=== PATIENT | female | born 1960 | race Caucasian/White ===

== ENCOUNTER → 2017-05-27 | Outpatient (CLI) | payer BC ==
--- NOTE | 2017-05-27 11:02 | KCIC ---
DATE: 05/27/2017 EXAM: MAMMO [place] SCREENING BILATERAL Bilateral Screening Digital 2D and 3D Mammogram HISTORY: Screening Mammogram COMPARISON: Multiple prior examinations including 03/08/2016, 03/05/2015 and 01/18/2014 This study was interpreted with the benefit of Computerized Aided Detection (CAD). The breast parenchyma shows scattered fibroglandular densities. Breast parenchyma level B. FINDINGS: Bilateral digital 2-D and 3-D tomosynthesis CC and MLO views. No suspicious mass, calcification or architectural distortion. No significant change from prior examination IMPRESSION: No mammographic evidence of malignancy. Recommend routine screening mammogram in 12 months. BI-RADS CATEGORY: 1 NEGATIVE RECOMMENDED FOLLOW-UP: 12M 12 MONTH FOLLOW-UP PQRS compliance statement: Patient information was entered into a reminder system with a target due date May for the next mammogram. Mammography is a sensitive method for finding small breast cancers, but it does not detect them all and is not a substitute for careful clinical examination. A negative mammogram does not negate a clinically suspicious finding and should not result in delay in biopsying a clinically suspicious abnormality. "Our facility is accredited by the [employer] Mammography Program."
== END | disposition home or self-care (01) ==
LOC: KCIC MAMMO 09:19
PROVIDERS: ATTEND Obstetrics & Gynecology
DX: Z12.31 Encounter for screening mammogram for malignant neoplasm of breast (principal)
CPT/HCPCS: 77063; G0202; 77067

== ENCOUNTER → 2018-02-14 | Outpatient (CLI) | payer BC ==
--- NOTE | 2018-02-14 16:12 | KCIC ---
Examination: MRI of the left knee without contrast HISTORY: History of medial knee pain, swelling for 2 months COMPARISON: None available TECHNIQUE: Multiplanar, multisequence MR imaging of the left knee was performed without contrast. Coronal and sagittal reformats are performed FINDINGS: The anterior cruciate ligament, posterior cruciate ligament appear intact. The medial meniscus, lateral meniscus appear intact. The medial collateral ligament appears intact. Lateral collateral ligamentous complex including the fibular collateral ligament, biceps femoris tendon, popliteus none appear intact. The extensor mechanism is intact. Moderate knee joint effusion. Small popliteal cyst is identified. There is a fluid extending superficial to the semimembranosus tendon medially could be extension of popliteal cyst or fluid in the semimembranosus bursa. The medial, lateral retinaculum appear intact. There is deep fissuring of cartilage identified in the patellar trochlea and medial patellar facet region. There is mild superficial fraying of cartilage identified in the medial, lateral compartment. There is mild soft tissue edema identified about the knee joint. Mild joint space loss identified in the medial, lateral, patellar femoral compartments. IMPRESSION: 1. Small popliteal cyst with fluid in the semimembranosus bursa. 2. Moderate knee joint effusion. 3. Grade II chondromalacia patellofemoral compartment. Grade I chondromalacia medial, lateral compartment of the knee. Electronically signed by: Juancarlos Arredondo MD (02/14/2018 4:08 PM) [facility]-KC[facility]
== END | disposition home or self-care (01) ==
LOC: KCIC MRI 15:17
PROVIDERS: ATTEND Orthopaedic Surgery
DX: M71.22 Synovial cyst of popliteal space [Baker], left knee (principal); M25.462 Effusion, left knee; M94.262 Chondromalacia, left knee
CPT/HCPCS: 73721

== ENCOUNTER 2020-02-23 10:26 | Emergency (ER) | payer BC ==
[~2020-02-23] VITALS: Ht 172.7 cm; Wt 98.0 kg
[2020-02-23] MEDS ORDERED: MECLIZINE HCL 12.5 MG TABLET. PO ONE (11:00)
[2020-02-23 11:30] VITALS: BP 131/83
[2020-02-23] MEDS ORDERED: IV NORMAL SALINE 1000ML BAG 1,000 ML IV ONE (11:30)
[2020-02-23] MEDS ORDERED: LIDO:MAALOX 1:1 20 ML SINGLE DOSE. SWSW ONE (11:30)
--- NOTE | 2020-02-23 11:39 | RAD ---
Chest AP portable at 1056: Reason for examination: Dizziness. History of vertigo. The heart size is normal. Mediastinum is unremarkable. Lung kc are clear except for small calcified granuloma. No acute bony abnormalities are seen. Impression: No acute cardiopulmonary disease. Electronically signed by: Crystal Thornton MD (02/23/2020 11:36 AM) [facility]
[2020-02-23 11:42] LABS: BILIRUBIN,URINE NEGATIVE (NEG); CLARITY,URINE CLEAR; COLOR,URINE YELLOW; NITRITE,URINE NEGATIVE (NEG); PROTEIN,URINE NEGATIVE (NEG-TRACE); UROBILINOGEN,URINE 0.2 mg/dL (0.2 mg/dL)
[2020-02-23 11:57] LABS: RBC,URINE OCC /HPF (0-2)
[2020-02-23 11:58] LABS: BACTERIA,URINE FEW /HPF (0-FEW); SQUAMOUS EPITHELIAL CELL,UR MOD /LPF
--- NOTE | 2020-02-23 12:16 | PHYS DOC ---
Past Medical History Past Medical History: Migraines Additional Past Medical Histor: vertigo Past Surgical History: Smoking Status: Never Smoker Alcohol Use: None General Adult EDM: Chief Complaint: DIZZY/LIGHT HEADED HPI: HPI: Patient is a 59 year old AA female who presents to the emergency department complaints of dizziness. She states that 7:00 this morning she woke up feeling lightheaded. Patient states she also has felt nauseated with the onset of the dizziness and has had some upper abdominal discomfort. She denies any vomiting, diarrhea, chest pain, shortness of breath, fever, cough, wheezing, body aches, fatigue, or back pain. She reports that she previously had problems with vertigo but that dizziness was much more severe than the dizziness experienced today. She denies any headache, numbness, tingling, or weakness. She currently denies any pain. Review of Systems: Review of Systems: Constitutional: Denies fever or chills. [] Eyes: Denies change in visual acuity, double vision, or photophobia. [] HENT: Denies nasal congestion or sore throat. [] Respiratory: Denies cough or shortness of breath. [] Cardiovascular: Denies chest pain or edema. [] GI: Denies vomiting, or diarrhea; see HPI [] : Denies dysuria. [] Musculoskeletal: Denies back pain or joint pain. [] Integument: Denies rash. [] Neurologic: Denies headache, see HPI Lymphatic: Denies swollen glands. [] Psychiatric: Denies depression or anxiety. [] Heart Score: Risk Factors: Risk Factors: DM, Current or recent (<one month) smoker, HTN, HLP, family history of CAD, obesity. Risk Scores: Score 0 - 3: 2.5% MACE over next 6 weeks - Discharge Home Score 4 - 6: 20.3% MACE over next 6 weeks - Admit for Clinical Observation Score 7 - 10: 72.7% MACE over next 6 weeks - Early Invasive Strategies Current Medications: Current Medications Medications (Trade) Dose Ordered Sig/Citlali Start Time Stop Time Status Last Admin Dose Admin Meclizine HCl (Antivert) 25 mg 1X ONCE 02/23/20 11:00 02/23/20 11:01 DC 02/23/20 11:05 25 MG Multi-Ingredient Mouthwash/Gargle (Gi Cocktail) 20 ml 1X ONCE 02/23/20 11:30 02/23/20 11:34 DC 02/23/20 11:48 20 ML Sodium Chloride 1,000 ml @ 1,000 mls/hr 1X ONCE 02/23/20 11:30 02/23/20 12:29 02/23/20 11:50 1,000 MLS/HR Allergies: Allergies: Allergies Coded Allergies Type Severity Reaction Last Updated Verified No Known Drug Allergies 02/23/20 No Physical Exam: PE: Constitutional: Well developed, well nourished, no acute distress, non-toxic appearance. [] HENT: Normocephalic, atraumatic, bilateral external ears normal, oropharynx moist, no oral exudates, nose normal. [] Eyes: PERRLA, EOMI, conjunctiva normal, no discharge, no nystagmus. [] Neck: Normal range of motion, no tenderness, supple, no stridor. [] Cardiovascular:Heart rate regular rhythm, no murmur [] Lungs & Thorax: Bilateral breath sounds clear to auscultation, Respirations even and unlabored, no retractions, no respiratory distress [] Abdomen: Bowel sounds normal, soft, no tenderness, no masses, no pulsatile masses. [] Skin: Warm, dry, no erythema, no rash. [] Back: No tenderness Extremities: No cyanosis, ROM intact, no edema. [] Neurologic: Alert and oriented X 3, no focal deficits noted. [] Psychologic: Affect normal, judgement normal, mood normal. [] Current Patient Data: Labs: Laboratory Tests Test 02/23/20 10:38 Urine Collection Type Unknown Urine Color Yellow Urine Clarity Clear Urine pH 6.0 (<5.0-8.0) Urine Specific [place] <=1.005 (1.000-1.030) Urine Protein Negative mg/dL (NEG-TRACE) Urine Glucose (UA) Negative mg/dL (NEG) Urine Ketones (Stick) Negative mg/dL (NEG) Urine Blood Negative (NEG) Urine Nitrite Negative (NEG) Urine Bilirubin Negative (NEG) Urine Urobilinogen Dipstick 0.2 mg/dL (0.2 mg/dL) Urine Leukocyte Esterase Small (NEG) Urine RBC Occ /HPF (0-2) Urine WBC 5-10 /HPF (0-4) Urine Squamous Epithelial Cells Mod /LPF Urine Bacteria Few /HPF (0-FEW) Urine Mucus Slight /LPF Vital Signs: Vital Signs Date Time Temp Pulse Resp B/P (MAP) Pulse Ox O2 Delivery O2 Flow Rate FiO2 02/23/20 10:45 97.5 80 16 130/72 (91) 99 Room Air 97.5 EKG: EK-sinus rhythm, no STEMI, rate of 74, read by Dr. Sanches [] Radiology/Procedures: Radiology/Procedures: PROCEDURE: CHEST AP ONLY Chest AP portable at 1056: Reason for examination: Dizziness. History of vertigo. The heart size is normal. Mediastinum is unremarkable. Lung kc are clear except for small calcified granuloma. No acute bony abnormalities are seen. Impression: No acute cardiopulmonary disease. [] Course & Med Decision Making: Course & Med Decision Making Pertinent Labs and Imaging studies reviewed. (See chart for details) 59-year-old female presents to the emergency department with sudden onset of dizziness. Work-up included labs, EKG, chest x-ray, and meclizine. EKG was normal sinus rhythm no acute changes. Chest x-ray was unremarkable. CBC revealed mild anemia with a hemoglobin of 10.6, and hematocrit of 33.8; BMP revealed a glucose of 173 otherwise unremarkable, patient's troponin was less than 0.017, BNP was 11, lipase was 239; urinalysis revealed a white blood cell count of 5-10, with few bacteria and moderate squamous cells most likely contaminated patient denies any increased urinary frequency, dysuria, or difficulty with urination. The patient was given 25 mg of meclizine p.o., and a GI cocktail. She reported resolution of the dizziness and the upper abdominal pain after these medications. Nursing staff was unable to initiate an IV line therefore the liter of normal saline was not given. Prescription written for meclizine. The patient was encouraged to change positions slowly, increase fluids, and go home and rest today. Encourage follow-up with primary care provider next week. Return to the ER symptoms worsen. Patient verbalized an understanding of home care, medications, follow-up, and return to ED instructions and was in agreement with the plan of care. [] Dragon Disclaimer: Dragon Disclaimer: This electronic medical record was generated, in whole or in part, using a voice recognition dictation system. Departure Departure Impression: Primary Impression: Vertigo Additional Impression: Epigastric abdominal pain Disposition: HOME, SELF-CARE Condition: STABLE Referrals: IDRIS GARCIA MD (PCP) Patient Instructions: Vertigo, [id number] Additional Instructions: Fill the prescription and use it as directed. Recommend use of sdfa-jsw-dahujop antacids such as Maalox, or Tums if your abdominal pain returns. Increase clear fluids. Change positions slowly for the next few days. I recommend that you follow-up with your primary care doctor next week. Return to the ER if symptoms worsen. Scripts Meclizine Hcl (MECLIZINE HCL) 25 Mg Tablet 1 TAB PO PRN TID PRN for DIZZINESS for 10 Days, #30 TAB Prov: MART HORN APRN 02/23/20 Justicifation of Admission Dx: Justifications for Admission: Justification of Admission Dx: N/A MART HORN APRN Feb 23, 2020 12:16
[2020-02-23 12:19] LABS: CALCIUM 9.2 mg/dL (8.5-10.1); CREATININE 0.9 mg/dL (0.6-1.0); GFR 64.3; POTASSIUM 3.9 mmol/L (3.5-5.1)
[2020-02-23 12:20] LABS: BASO # 0.1 x10^3/uL (0.0-0.2); BASO % 1 % (0-3); EOS # 0.1 x10^3/uL (0.0-0.7); EOS % 1 % (0-3); HEMATOCRIT 33.8 % (36.0-47.0); HEMOGLOBIN 10.6 g/dL (12.0-15.5); LYMPH # 3.3 x10^3/uL (1.0-4.8); LYMPH % 40 % (24-48); MEAN CORPUSCULAR HEMOGLOBIN 25 pg (25-35); MEAN CORPUSCULAR HGB CONC 31 g/dL (31-37); MEAN CORPUSCULAR VOLUME 80 fL (79-100); MONO # 0.4 x10^3/uL (0.0-1.1); MONO % 4 % (0-9); NEUT # 4.6 x10^3/uL (1.8-7.7); NEUT % 54 % (31-73); PLATELET COUNT 334 x10^3/uL (140-400); RED BLOOD COUNT 4.23 x10^6/uL (3.50-5.40); RED CELL DISTRIBUTION WIDTH 16.9 % (11.5-14.5); WHITE BLOOD COUNT 8.4 x10^3/uL (4.0-11.0)
[2020-02-23] MEDS ORDERED: MECL-75 PO (13:00)
--- NOTE | 2020-02-23 14:27 | EKG ---
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
== END 2020-02-23 13:13 | disposition home or self-care (01) ==
LOC: ER 10:26
DX: R10.13 Epigastric pain (principal); R42 Dizziness and giddiness; R11.0 Nausea; G43.909 Migraine, unspecified, not intractable, without status migrainosus; Z98.890 Other specified postprocedural states
CPT/HCPCS: 36415; 71045; 80048; 81001; 83690; 83880; 84484; 85025; 93005; 96360; 99285; J7030; J8597

== ENCOUNTER 2021-07-16 20:49 | Inpatient (IN) | payer BC ==
[~2021-07-16] VITALS: Ht 172.7 cm; Wt 94.6 kg
[~2021-07-16 20:49] MED LIST: MECL-75 PO
--- NOTE | 2021-07-17 02:33 | PHYS DOC ---
Past Medical History Past Medical History: Migraines Additional Past Medical Histor: vertigo, COVID 07/04/2021 Past Surgical History: Smoking Status: Never Smoker Alcohol Use: None General Adult EDM: Chief Complaint: ABDOMINAL PAIN HPI: HPI: 60-year-old female past medical history of migraine headaches, presents to the ED with complaints of constant, nonradiating upper abdominal pain described as" burning, inflamed, and a dull ache," present for the past 2 days with associated back pain. States the pain intensified yesterday. No relief with 3 Tylenol. Reports history of gastric ulcer that was treated with sucralfate. Never had an EGD. Denies any alcohol or drug use. Last bowel movement was this morning, normal brown color. Past surgical history and left wrist surgery. Only medication is Metformin. Reports she tested positive for Covid on July 04, 2022. Review of Systems: Review of Systems: Constitutional: Denies fever or chills. [] Eyes: Denies change in visual acuity. [] HENT: Denies nasal congestion or sore throat. [] Respiratory: Denies cough or shortness of breath. [] Cardiovascular: Denies chest pressure/tightness/heaviness/tearing or ripping pain or edema. [] GI: Denies nausea, vomiting, bloody stools or diarrhea. [] : Denies dysuria or vaginal bleeding Musculoskeletal: Denies flank pain or joint pain. [] Integument: Denies rash or diaphoresis Neurologic: Denies headache, focal weakness or sensory changes. [] Endocrine: Denies polyuria or polydipsia. [] Lymphatic: Denies swollen glands. [] Psychiatric: Denies depression or anxiety. [] Heart Score: C/O Chest Pain: No Risk Factors: Risk Factors: DM, Current or recent (<one month) smoker, HTN, HLP, family history of CAD, obesity. Risk Scores: Score 0 - 3: 2.5% MACE over next 6 weeks - Discharge Home Score 4 - 6: 20.3% MACE over next 6 weeks - Admit for Clinical Observation Score 7 - 10: 72.7% MACE over next 6 weeks - Early Invasive Strategies Allergies: Allergies: Allergies Coded Allergies Type Severity Reaction Last Updated Verified No Known Drug Allergies 02/23/20 No Physical Exam: PE: Constitutional: Well developed, well nourished, no acute distress, non-toxic appearance. HENT: Normocephalic, atraumatic, Eyes: EOMI, conjunctiva normal, no discharge. Neck: Normal range of motion, supple, Cardiovascular: S1/2 present, regular rhythm Lungs & Thorax: Speaking in full sentences, bilateral equal chest rise, no tachypnea or increased work of breathing Abdomen: soft, right upper quadrant and epigastric tenderness with no rigidity or peritoneal signs, no distention Skin: Warm, dry, no erythema, no rash. [] Back: No midline tenderness, no CVA tenderness, reports bilateral paraspinal lumbar pain Extremities: No tenderness, no cyanosis, no lower extremity edema Neurologic: Alert and oriented X 3, normal motor function, normal sensory function, no focal deficits noted. [] Psychologic: Affect normal, judgement normal, mood normal. [] Current Patient Data: Vital Signs: Vital Signs Date Time Temp Pulse Resp B/P (MAP) Pulse Ox O2 Delivery O2 Flow Rate FiO2 07/17/21 01:45 98.2 91 18 118/57 (77) 98 Room Air 98.2 EKG: EKG: Sinus rhythm 82 beats per minute, no axis deviation cutting intervals, T wave inversion lead III, no ST elevations or ST depressions, Q-wave present in lead III, no S in lead I Radiology/Procedures: Radiology/Procedures: IMAGING REPORT Signed PATIENT: MOIRA MCDOWELL ACCOUNT: [id number] : 1960 LOCATION: ER AGE: 60 SEX: F EXAM STATUS: REG ER ORD. PHYSICIAN: TORRES SAMANIEGO DO REASON: upper abd pain PROCEDURE: PORTABLE CHEST 1V EXAM: AP View of the chest DATE: 07/17/2021 2:58 AM INDICATION: Reason: upper abd pain / Spl. Instructions: / History: COMPARISON: 02/23/2020 FINDINGS: The heart is not enlarged. Mediastinal and hilar contours are normal. Left mid lung and lung base patchy airspace opacities likely consolidative process such as pneumonia. No pleural effusion or pneumothorax. IMPRESSION: Left mid lung and lung base patchy airspace opacities likely consolidative process such as pneumonia. Atelectasis could also have this appearance. Electronically signed by: Ari Ramos MD (07/17/2021 3:04 AM) JUNIOR DICTATED and SIGNED BY: ARI RAMOS MD DATE: 07/17/21 [id number] IMAGING REPORT Signed PATIENT: MOIRA MCDOWELL ACCOUNT: [id number] : 1960 LOCATION: ER AGE: 60 SEX: F EXAM STATUS: REG ER ORD. PHYSICIAN: TORRES SAMANIEGO DO REASON: upper abd pain;OMNI 300, 75ML PROCEDURE: CT ABD PELV W/ IV CONTRST ONLY EXAM: CT Abdomen and Pelvis with IV contrast CLINICAL HISTORY: upper abd pain COMPARISON: none TECHNIQUE: Helical CT of the abdomen and pelvis was performed following the administration of intravenous contrast. Axial, coronal and sagittal reformatted images were generated. PQRS compliance statement - One or more of the following individualized dose reduction techniques were utilized for this study: 1. Automated exposure control 2. Adjustment of the mA and/or kV according to patient size 3. Use of iterative reconstruction technique FINDINGS: Lower Chest: Lung bases are clear. Abdomen and Pelvis: Liver is unremarkable. Gallbladder is normal. Spleen is unremarkable. Adrenal glands are normal. Pancreas is unremarkable. Appendix is normal. Symmetric nephrograms. No focal renal lesion. No hydronephrosis. No hydroureter. Multiple uterine fibroids including some of which are calcified. Appendix is normal. Moderate colonic stool content is seen. There is infiltration of the colon at the hepatic flexure. Small bowel feces sign distal small bowel. No abdominal or pelvic ascites. No abdominal or pelvic lymphadenopathy. Bones: No aggressive osseous lesion is seen. Degenerative changes of the spine are seen. IMPRESSION: 1. Thickening of the hepatic flexure of the colon with associated moderate infiltration consistent with colitis, possibly infectious or inflammatory. Ischemic colitis is not excluded but less likely given distribution. Of note, colonic mass can also present in this manner and following resolution of the acute process, colonoscopy is recommended if not recently performed. Electronically signed by: Ari Ramos MD (07/17/2021 4:03 AM) JUNIOR DICTATED and SIGNED BY: ARI RAMOS MD DATE: 07/17/21 [id number] Course & Med Decision Making: Course & Med Decision Making Pertinent Labs and Imaging studies reviewed. (See chart for details) Concern for abdominal pain in the setting of likely infectious colitis on CT imaging, ischemic less likely-lactic acid pending. Chest x-ray concerning for possible pneumonia. D-dimer was accidentally ordered-CT chest pending to evaluate aorta. Will start on azithromycin. On reevaluation patient with persistent abdominal pain stating "nothing has changes." Gallbladder wnl on CT imaging. Recommend repeating troponin and will admit to medicine. I have spoken with the patient and/or caregivers. I have explained the patient's condition, diagnosis and treatment plan based on the information available to me at this time. I have answered the patient's and/or caregivers questions and answered any concerns. The patient and/or caregivers have as good an understanding of the patient's diagnosis, condition and treatment plan as can be expected at this point. The patient has been stabilized within the capability of the emergency department. The patient will be transported for further care and management or will be moved to an observation or inpatient service. I have communicated with the staff or medical practitioner taking over this patient's care. Jackelyn Disclaimer: Jackelyn Disclaimer: This electronic medical record was generated, in whole or in part, using a voice recognition dictation system. Departure Departure Impression: Primary Impression: Abdominal pain Additional Impressions: Colitis Pneumonia Disposition: ADMITTED INPATIENT Admitting Physician: KAY (Dr. Lara) Condition: STABLE Referrals: IDRIS GARCIA MD (PCP) TORRES SAMANIEGO DO Jul 17, 2021 02:33
[2021-07-17] MEDS ORDERED: IV NORMAL SALINE 1000ML BAG 1,000 ML IV SCH (02:45)
[2021-07-17] MEDS ORDERED: IV NORMAL SALINE 1000ML BAG 1,000 ML IV ONE (03:00)
[2021-07-17 03:04] LABS: BASO % 0 % (0-3); EOS # 0.1 x10^3/uL (0.0-0.7); EOS % 1 % (0-3); HEMATOCRIT 31.3 % (36.0-47.0); HEMOGLOBIN 9.9 g/dL (12.0-15.5); LYMPH # 3.7 x10^3/uL (1.0-4.8); LYMPH % 31 % (24-48); MEAN CORPUSCULAR HEMOGLOBIN 24 pg (25-35); MEAN CORPUSCULAR HGB CONC 32 g/dL (31-37); MEAN CORPUSCULAR VOLUME 77 fL (79-100); MONO # 1.1 x10^3/uL (0.0-1.1); MONO % 9 % (0-9); NEUT % 59 % (31-73); PLATELET COUNT 430 x10^3/uL (140-400); RED BLOOD COUNT 4.06 x10^6/uL (3.50-5.40); RED CELL DISTRIBUTION WIDTH 16.1 % (11.5-14.5); WHITE BLOOD COUNT 11.9 x10^3/uL (4.0-11.0)
[2021-07-17 03:05] LABS: BILIRUBIN,URINE SMALL (NEG); CLARITY,URINE CLEAR; COLOR,URINE AMBER; NITRITE,URINE NEGATIVE (NEG); PH,URINE 6.5 (<5.0-8.0); PROTEIN,URINE 30 mg/dL (NEG-TRACE)
--- NOTE | 2021-07-17 03:06 | RAD ---
EXAM: AP View of the chest DATE: 07/17/2021 2:58 AM INDICATION: Reason: upper abd pain / Spl. Instructions: / History: COMPARISON: 02/23/2020 FINDINGS: The heart is not enlarged. Mediastinal and hilar contours are normal. Left mid lung and lung base patchy airspace opacities likely consolidative process such as pneumonia. No pleural effusion or pneumothorax. IMPRESSION: Left mid lung and lung base patchy airspace opacities likely consolidative process such as pneumonia. Atelectasis could also have this appearance. Electronically signed by: Ari Crowley MD (07/17/2021 3:04 AM) JUNIOR
[2021-07-17 03:11] LABS: BARBITURATES NEG (NEG); BENZODIAZEPINES NEG (NEG); CANNABINOIDS NEG (NEG); COCAINE NEG (NEG); METHADONE NEG (NEG); OPIATES NEG (NEG); PHENCYCLIDINE NEG (NEG)
[2021-07-17 03:13] LABS: AMPHETAMINE/METHAMPHETAMINE NEG (NEG)
[2021-07-17 03:15] LABS: CALCIUM 8.6 mg/dL (8.5-10.1); CREATININE 0.8 mg/dL (0.6-1.0); GFR 73.4
[2021-07-17 03:20] LABS: ALBUMIN 3.4 g/dL (3.4-5.0); ALBUMIN/GLOBULIN RATIO 0.8 (1.0-1.7); MAGNESIUM 2.2 mg/dL (1.8-2.4); TOTAL BILIRUBIN 0.6 mg/dL (0.2-1.0); TOTAL PROTEIN 7.5 g/dL (6.4-8.2)
[2021-07-17] MEDS ORDERED: FAMOTIDINE 20 MG/2 ML VIAL IVP ONE (03:30)
[2021-07-17 03:34] LABS: BACTERIA,URINE 0 /HPF (0-FEW); HYALINE CASTS, URINE FEW /HPF; RBC,URINE 0 /HPF (0-2)
[2021-07-17] MEDS ORDERED: CONTRAST GIVEN. MC PRN (03:45)
[2021-07-17] MEDS ORDERED: IOHEXOL 300 MG/ML 100ML VIAL. IV ONE (03:45)
--- NOTE | 2021-07-17 04:06 | RAD ---
EXAM: CT Abdomen and Pelvis with IV contrast CLINICAL HISTORY: upper abd pain COMPARISON: none TECHNIQUE: Helical CT of the abdomen and pelvis was performed following the administration of intrave nous contrast. Axial, coronal and sagittal reformatted images were generated. PQRS compliance statement - One or more of the following individualized dose reduction techniques wer e utilized for this study: 1. Automated exposure control 2. Adjustment of the mA and/or kV according to patient size 3. Use of iterative reconstruction technique FINDINGS: Lower Chest: Lung bases are clear. Abdomen and Pelvis: Liver is unremarkable. Gallbladder is normal. Spleen is unremarkable. Adrenal glands are normal. Panc reas is unremarkable. Appendix is normal. Symmetric nephrograms. No focal renal lesion. No hydronephrosis. No hydroureter. Multiple uterine fib roids including some of which are calcified. Appendix is normal. Moderate colonic stool content is seen. There is infiltration of the colon at the hepatic flexure. Small bowel feces sign distal small bowel. No abdominal or pelvic ascites. No abdominal or pelvic lymphadenopathy. Bones: No aggressive osseous lesion is seen. Degenerative changes of the spine are seen. IMPRESSION: 1. Thickening of the hepatic flexure of the colon with associated moderate infiltration consistent w ith colitis, possibly infectious or inflammatory. Ischemic colitis is not excluded but less likely gi fabienne distribution. Of note, colonic mass can also present in this manner and following resolution of t he acute process, colonoscopy is recommended if not recently performed. Electronically signed by: Ari Crowley MD (07/17/2021 4:03 AM) [facility]
--- NOTE | 2021-07-17 04:34 | EKG ---
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
[2021-07-17] MEDS ORDERED: HYDROmorphone 2 MG/ML INJ. IVP ONE (05:15)
[2021-07-17] MEDS ORDERED: AZITHRMYCN 500MG IVPB FOR OMNI 250 ML IV ONE (05:15)
[2021-07-17] MEDS ORDERED: AZITHROMYCIN 500 MG in IV NORMAL SALINE 250ML 250 ML IV ONE (05:30)
--- NOTE | 2021-07-17 05:44 | RAD ---
EXAM: CT Chest without IV contrast CLINICAL HISTORY: epigastric pain COMPARISON: None. TECHNIQUE: CT of the chest without intravenous contrast. Axial, coronal and sagittal reformatted imag es were generated. ---PQRS compliance statement - One or more of the following individualized dose reduction techniques were utilized for this study: 1. Automated exposure control 2. Adjustment of the mA and/or kV according to patient size 3. Use of iterative reconstruction technique--- FINDINGS: Lack of intravenous contrast limits evaluation of solid organs, vasculature, and lymph nodes. Chest: Heart is not enlarged. Trace pericardial fluid is likely physiologic. Within the constraints o f this noncontrast examination, no mediastinal or hilar lymphadenopathy. No axillary lymphadenopathy. Mild emphysematous changes are seen bilaterally. Linear opacities left lower lobe possibly scarring o r atelectasis. No lobar consolidation. No suspicious lung nodule or mass is seen. Small hiatal hernia . Visualized Upper abdomen: Contrast is seen within the renal collecting systems from prior contrast ad ministration. Please see prior CT abdomen and pelvis report for full abdominal details. Bones: No aggressive osseous lesion is seen. IMPRESSION: 1. Aorta is normal in caliber. 2. Linear opacities lung bases likely scarring or atelectasis. No lobar consolidation. Electronically signed by: Ari Crowley MD (07/17/2021 5:41 AM) [facility]
--- NOTE | 2021-07-17 08:11 | PDOC1 ---
History and Physical Date of Admission Date of Admission DATE: 07/17/21 TIME: 08:11 Identification/Chief Complaint Chief Complaint Abdominal pain Source Source: Patient History of Present Illness History of Present Illness Ms Khan is a 60 yo female with PMHx DM2, PUD who comes to ED 07/16/2021 complaining of progressively worsening epigastric pain that began on 1 5 and has progressively worsened. Associated sour stomach and nausea unable to take p.o. due to the pain. Loss of appetite. Try to eat soup which did not worsen the pain but does not have an appetite. She forced herself to eat. She was diagnosed COVID-19 on 07/04/2021 and recovered at home. She is fully vaccinated with the Moderna vaccine. Her respiratory symptoms had resolved on 07/14/2021 and was feeling good for a couple days prior to her GI symptoms. While she had COVID she did have diarrhea but that has resolved approximately 5 days before coming to the ED. For diabetes she notes her A1c was initially 14 and has been able to get it down to 8 takes 1000 g of Metformin twice daily. Has been on sucralfate for over 5 years as her PCP diagnosed her with ulcers. She has never had an EGD but did have a colonoscopy almost 10 years ago noted polyps. She cannot member the physician where she had this performed. EKG Sinus rhythm 82 beats per minute, no axis deviation cutting intervals, T wave inversion lead III, no ST elevations or ST depressions, Q-wave present in lead III, no S in lead I Chest radiograph with left midlung airspace disease CT chest does not confirm this. CT abdomen pelvis with hepatic flexure wall thickening of the colon. Admitted for further care. Past Medical History Endocrine: Diabetes Past Surgical History Past Surgical History: No pertinent history Family History Family History: Diabetes Current Problem List Problem List Problems Medical Problems: (1) Abdominal pain Status: Acute (2) Colitis Status: Acute (3) Pneumonia Status: Acute Current Medications Current Medications Current Medications Sodium Chloride 1,000 ml @ 1,000 mls/hr Q1H IV ; Start 07/17/21 at 02:45; Stop 07/17/21 at 03:44; Status DC Sodium Chloride 1,000 ml @ 1,000 mls/hr 1X ONCE IV Last administered on 07/17/21at 02:52; Start 07/17/21 at 03:00; Stop 07/17/21 at 03:59; Status DC Famotidine (Pepcid Vial) 20 mg 1X ONCE IVP Last administered on 07/17/21at 03:30; Start 07/17/21 at 03:30; Stop 07/17/21 at 03:31; Status DC Iohexol (Omnipaque 300 Mg/ml) 75 ml 1X ONCE IV Last administered on 07/17/21at 03:43; Start 07/17/21 at 03:45; Stop 07/17/21 at 03:46; Status DC Info (CONTRAST GIVEN -- Rx MONITORING) 1 each PRN DAILY PRN MC SEE COMMENTS; Start 07/17/21 at 03:45; Stop 07/19/21 at 03:44 Azithromycin 250 ml @ 250 mls/hr 1X ONCE IV ; Start 07/17/21 at 05:15; Stop 07/17/21 at 06:14; Status UNV Hydromorphone HCl (Dilaudid) 0.5 mg 1X ONCE IVP Last administered on 07/17/21at 05:15; Start 07/17/21 at 05:15; Stop 07/17/21 at 05:21; Status DC Azithromycin 500 mg/Sodium Chloride 250 ml @ 250 mls/hr 1X ONCE IV ; Start 07/17/21 at 05:30; Stop 07/17/21 at 05:23; Status DC Azithromycin 500 mg/Sodium Chloride 250 ml @ 250 mls/hr 1X ONCE IV Last administered on 07/17/21at 05:30; Start 07/17/21 at 05:30; Stop 07/17/21 at 06:29; Status DC Active Scripts Active Meclizine Hcl 25 Mg Tablet 1 Tab PO PRN TID PRN 10 Days Allergies Allergies: Coded Allergies: No Known Drug Allergies (Unverified , 02/23/20) Physical Exam General: Alert, Oriented X3, Cooperative, moderate distress HEENT: Atraumatic, PERRLA, EOMI, Mucous membr. moist/pink Lungs: Clear to auscultation, Normal air movement Heart: S1S2, RRR, no thrills, no rubs, no gallops, no murmurs Abdomen: Normal bowel sounds, Soft, No hepatosplenomegaly, No masses, Other (Epigastric tenderness) Rectal Exam: not examined Skin: No rashes, No breakdown, No significant lesion Neuro: Normal gait, Normal speech, Strength at 5/5 X4 ext, Normal tone, Sensation intact, Cranial nerves 3-12 NL, Reflexes 2+ Psych/Mental Status: Mental status NL, Mood NL Vitals Vitals Vital Signs Date Time Temp Pulse Resp B/P (MAP) Pulse Ox O2 Delivery O2 Flow Rate FiO2 07/17/21 05:45 81 138/61 (86) 99 Room Air 07/17/21 01:45 98.2 18 98.2 Labs Labs Laboratory Tests Test 07/17/21 02:22 07/17/21 02:46 07/17/21 05:45 Urine Collection Type Unknown Urine Color Zora Urine Clarity Clear Urine pH 6.5 (<5.0-8.0) Urine Specific [place] >=1.030 (1.000-1.030) Urine Protein 30 mg/dL (NEG-TRACE) Urine Glucose (UA) Negative mg/dL (NEG) Urine Ketones (Stick) Trace mg/dL (NEG) Urine Blood Negative (NEG) Urine Nitrite Negative (NEG) Urine Bilirubin Small (NEG) Urine Urobilinogen Dipstick 1.0 mg/dL (0.2 mg/dL) Urine Leukocyte Esterase Small (NEG) Urine RBC 0 /HPF (0-2) Urine WBC 5-10 /HPF (0-4) Urine Squamous Epithelial Cells Few /LPF Urine Bacteria 0 /HPF (0-FEW) Urine Hyaline Casts Few /HPF Urine Mucus Marked /LPF Urine Opiates Screen Neg (NEG) Urine Methadone Screen Neg (NEG) Urine Barbiturates Neg (NEG) Urine Phencyclidine Screen Neg (NEG) Urine Amphetamine/Methamphetamine Neg (NEG) Urine Benzodiazepines Screen Neg (NEG) Urine Cocaine Screen Neg (NEG) Urine Cannabinoids Screen Neg (NEG) Urine Ethyl Alcohol Neg (NEG) White Blood Count 11.9 x10^3/uL (4.0-11.0) Red Blood Count 4.06 x10^6/uL (3.50-5.40) Hemoglobin 9.9 g/dL (12.0-15.5) Hematocrit 31.3 % (36.0-47.0) Mean Corpuscular Volume 77 fL (79-100) Mean Corpuscular Hemoglobin 24 pg (25-35) Mean Corpuscular Hemoglobin Concent 32 g/dL (31-37) Red Cell Distribution Width 16.1 % (11.5-14.5) Platelet Count 430 x10^3/uL (140-400) Neutrophils (%) (Auto) 59 % (31-73) Lymphocytes (%) (Auto) 31 % (24-48) Monocytes (%) (Auto) 9 % (0-9) Eosinophils (%) (Auto) 1 % (0-3) Basophils (%) (Auto) 0 % (0-3) Neutrophils # (Auto) 7.0 x10^3/uL (1.8-7.7) Lymphocytes # (Auto) 3.7 x10^3/uL (1.0-4.8) Monocytes # (Auto) 1.1 x10^3/uL (0.0-1.1) Eosinophils # (Auto) 0.1 x10^3/uL (0.0-0.7) Basophils # (Auto) 0.0 x10^3/uL (0.0-0.2) D-Dimer (Irasema) 2.39 ug/mlFEU (0.00-0.50) Sodium Level 138 mmol/L (136-145) Potassium Level 4.0 mmol/L (3.5-5.1) Chloride Level 103 mmol/L (98-107) Carbon Dioxide Level 26 mmol/L (21-32) Anion Gap 9 (6-14) Blood Urea Nitrogen 9 mg/dL (7-20) Creatinine 0.8 mg/dL (0.6-1.0) Estimated GFR (Cockcroft-Gault) 73.4 BUN/Creatinine Ratio 11 (6-20) Glucose Level 109 mg/dL (70-99) Calcium Level 8.6 mg/dL (8.5-10.1) Magnesium Level 2.2 mg/dL (1.8-2.4) Total Bilirubin 0.6 mg/dL (0.2-1.0) Aspartate Amino Transf (AST/SGOT) 25 U/L (15-37) Alanine Aminotransferase (ALT/SGPT) 44 U/L (14-59) Alkaline Phosphatase 132 U/L (46-116) Troponin I High Sensitivity 5 ng/L (4-50) 5 ng/L (4-50) QN-Fee-Y-Type Natriuretic Peptide 7 pg/mL (0-124) Total Protein 7.5 g/dL (6.4-8.2) Albumin 3.4 g/dL (3.4-5.0) Albumin/Globulin Ratio 0.8 (1.0-1.7) Lipase 68 U/L (73-393) Lactic Acid Level 0.7 mmol/L (0.4-2.0) Laboratory Tests Test 07/17/21 02:22 07/17/21 02:46 07/17/21 05:45 Urine Collection Type Unknown Urine Color Zora Urine Clarity Clear Urine pH 6.5 (<5.0-8.0) Urine Specific [place] >=1.030 (1.000-1.030) Urine Protein 30 mg/dL (NEG-TRACE) Urine Glucose (UA) Negative mg/dL (NEG) Urine Ketones (Stick) Trace mg/dL (NEG) Urine Blood Negative (NEG) Urine Nitrite Negative (NEG) Urine Bilirubin Small (NEG) Urine Urobilinogen Dipstick 1.0 mg/dL (0.2 mg/dL) Urine Leukocyte Esterase Small (NEG) Urine RBC 0 /HPF (0-2) Urine WBC 5-10 /HPF (0-4) Urine Squamous Epithelial Cells Few /LPF Urine Bacteria 0 /HPF (0-FEW) Urine Hyaline Casts Few /HPF Urine Mucus Marked /LPF Urine Opiates Screen Neg (NEG) Urine Methadone Screen Neg (NEG) Urine Barbiturates Neg (NEG) Urine Phencyclidine Screen Neg (NEG) Urine Amphetamine/Methamphetamine Neg (NEG) Urine Benzodiazepines Screen Neg (NEG) Urine Cocaine Screen Neg (NEG) Urine Cannabinoids Screen Neg (NEG) Urine Ethyl Alcohol Neg (NEG) White Blood Count 11.9 x10^3/uL (4.0-11.0) Red Blood Count 4.06 x10^6/uL (3.50-5.40) Hemoglobin 9.9 g/dL (12.0-15.5) Hematocrit 31.3 % (36.0-47.0) Mean Corpuscular Volume 77 fL (79-100) Mean Corpuscular Hemoglobin 24 pg (25-35) Mean Corpuscular Hemoglobin Concent 32 g/dL (31-37) Red Cell Distribution Width 16.1 % (11.5-14.5) Platelet Count 430 x10^3/uL (140-400) Neutrophils (%) (Auto) 59 % (31-73) Lymphocytes (%) (Auto) 31 % (24-48) Monocytes (%) (Auto) 9 % (0-9) Eosinophils (%) (Auto) 1 % (0-3) Basophils (%) (Auto) 0 % (0-3) Neutrophils # (Auto) 7.0 x10^3/uL (1.8-7.7) Lymphocytes # (Auto) 3.7 x10^3/uL (1.0-4.8) Monocytes # (Auto) 1.1 x10^3/uL (0.0-1.1) Eosinophils # (Auto) 0.1 x10^3/uL (0.0-0.7) Basophils # (Auto) 0.0 x10^3/uL (0.0-0.2) D-Dimer (Irasema) 2.39 ug/mlFEU (0.00-0.50) Sodium Level 138 mmol/L (136-145) Potassium Level 4.0 mmol/L (3.5-5.1) Chloride Level 103 mmol/L (98-107) Carbon Dioxide Level 26 mmol/L (21-32) Anion Gap 9 (6-14) Blood Urea Nitrogen 9 mg/dL (7-20) Creatinine 0.8 mg/dL (0.6-1.0) Estimated GFR (Cockcroft-Gault) 73.4 BUN/Creatinine Ratio 11 (6-20) Glucose Level 109 mg/dL (70-99) Calcium Level 8.6 mg/dL (8.5-10.1) Magnesium Level 2.2 mg/dL (1.8-2.4) Total Bilirubin 0.6 mg/dL (0.2-1.0) Aspartate Amino Transf (AST/SGOT) 25 U/L (15-37) Alanine Aminotransferase (ALT/SGPT) 44 U/L (14-59) Alkaline Phosphatase 132 U/L (46-116) Troponin I High Sensitivity 5 ng/L (4-50) 5 ng/L (4-50) HN-Jqe-A-Type Natriuretic Peptide 7 pg/mL (0-124) Total Protein 7.5 g/dL (6.4-8.2) Albumin 3.4 g/dL (3.4-5.0) Albumin/Globulin Ratio 0.8 (1.0-1.7) Lipase 68 U/L (73-393) Lactic Acid Level 0.7 mmol/L (0.4-2.0) Images Images Radiology/Procedures: IMAGING REPORT Signed PATIENT: MOIRA KHAN ACCOUNT: [id number] : 1960 LOCATION: ER AGE: 60 SEX: F EXAM STATUS: REG ER ORD. PHYSICIAN: TORRES SAMANIEGO DO REASON: upper abd pain PROCEDURE: PORTABLE CHEST 1V EXAM: AP View of the chest DATE: 07/17/2021 2:58 AM INDICATION: Reason: upper abd pain / Spl. Instructions: / History: COMPARISON: 02/23/2020 FINDINGS: The heart is not enlarged. Mediastinal and hilar contours are normal. Left mid lung and lung base patchy airspace opacities likely consolidative process such as pneumonia. No pleural effusion or pneumothorax. IMPRESSION: Left mid lung and lung base patchy airspace opacities likely consolidative process such as pneumonia. Atelectasis could also have this appearance. Electronically signed by: Ari Ramos MD (07/17/2021 3:04 AM) [facility] DICTATED and SIGNED BY: ARI RAMOS MD DATE: 07/17/21 [id number] IMAGING REPORT Signed PATIENT: MOIRA KHAN ACCOUNT: [id number] : 1960 LOCATION: ER AGE: 60 SEX: F EXAM STATUS: REG ER ORD. PHYSICIAN: TORRES SAMANIEGO DO REASON: upper abd pain;OMNI 300, 75ML PROCEDURE: CT ABD PELV W/ IV CONTRST ONLY EXAM: CT Abdomen and Pelvis with IV contrast CLINICAL HISTORY: upper abd pain COMPARISON: none TECHNIQUE: Helical CT of the abdomen and pelvis was performed following the administration of intravenous contrast. Axial, coronal and sagittal reformatted images were generated. PQRS compliance statement - One or more of the following individualized dose reduction techniques were utilized for this study: 1. Automated exposure control 2. Adjustment of the mA and/or kV according to patient size 3. Use of iterative reconstruction technique FINDINGS: Lower Chest: Lung bases are clear. Abdomen and Pelvis: Liver is unremarkable. Gallbladder is normal. Spleen is unremarkable. Adrenal glands are normal. Pancreas is unremarkable. Appendix is normal. Symmetric nephrograms. No focal renal lesion. No hydronephrosis. No hydroureter. Multiple uterine fibroids including some of which are calcified. Appendix is normal. Moderate colonic stool content is seen. There is infiltration of the colon at the hepatic flexure. Small bowel feces sign distal small bowel. No abdominal or pelvic ascites. No abdominal or pelvic lymphadenopathy. Bones: No aggressive osseous lesion is seen. Degenerative changes of the spine are seen. IMPRESSION: 1. Thickening of the hepatic flexure of the colon with associated moderate infiltration consistent with colitis, possibly infectious or inflammatory. Ischemic colitis is not excluded but less likely given distribution. Of note, colonic mass can also present in this manner and following resolution of the acute process, colonoscopy is recommended if not recently performed. VTE Prophylaxis Ordered VTE Prophylaxis Devices: No VTE Pharmacological Prophylaxi: Yes Assessment/Plan Assessment/Plan A/P: Epigastric abdominal pain -possibly PUD. IV fentanyl for pain, IV PPI. Consult GI for consideration of EGD inpatient versus outpatient. If able to manage pain may be radicular outpatient. Abnormal CT -not clear if it is actually colitis. Urinary symptoms are consistent with's. Microcytic anemia -has history of ZION likely case. Iron studies ordered by GI DM2 -sliding scale. Hold metformin as she has GI upset H/o COVID 19 - in recovery FEN - NPO PPX - PPI FULL CODE DIspo - inpatient Justifications for Admission Other Justification VANESSA LANDERS MD Jul 17, 2021 08:11
--- NOTE | 2021-07-17 09:05 | PDOC2 ---
GI CONSULT Date of Service: DATE: 07/17/21 TIME: 09:05 Reason For Consult: hepatic flexure mass/colitis HPI: HPI: Pleasant 60 y/o female in ER awaiting available bed on floor. Recent diagnosis of COVID (07/04/21) - had fever/chills, bodyaches, n/v, diarrhea. Lingering symptom is fatigue - rest better. Then developed epigastric pain 2 days ago - "constant churning." Not worse with eating soup but possibly worse after eating onions (which is not a new symptom - usually gets a stomachache after onions). Last stool normal yesterday morning. No heartburn/reflux, dysphagia, hematemesis, hematochezia, melena, constipation, or weight loss. Has felt bloated x 4 months since started metformin. No previous EGD though was treated empirically for "ulcer" w/ sucralfate ~7 years ago by PCP for mid-lower abdominal pain. Says changing her diet to avoid meat helped as well. Reports polyps on colonoscopy within the past 10 years - can't remember where performed. No GB, liver, or pancreas history. Denies NSAIDs - took Tylenol at home during COVID illness. Reports lifelong h/o "anemia" - used to take iron, still takes B12. PMH: PMH: COVID, DM, migraines (sensitivity to light - no pain) FH: Family History: Other (sister - "colitis sometimes") Social History: Smoke: No ALCOHOL: none Drugs: None ROS: GEN: fatigue HEENT: Denies blurred vision, sore throat CV: Denies chest pain RESP: Denies shortness of air, cough GI: Per HPI : Denies hematuria, dysuria ENDO: Denies weight changes NEURO: Denies confusion, dizziness MSK: Denies weakness, joint pain/swelling SKIN: Denies jaundice, pruritus Vitals: Vitals: Vital Signs Date Time Temp Pulse Resp B/P (MAP) Pulse Ox O2 Delivery O2 Flow Rate FiO2 07/17/21 05:45 81 138/61 (86) 99 Room Air 07/17/21 01:45 98.2 18 98.2 Labs: Labs: Laboratory Tests Test 07/17/21 02:22 07/17/21 02:46 07/17/21 05:45 Urine Collection Type Unknown Urine Color Zora Urine Clarity Clear Urine pH 6.5 (<5.0-8.0) Urine Specific [place] >=1.030 (1.000-1.030) Urine Protein 30 mg/dL (NEG-TRACE) Urine Glucose (UA) Negative mg/dL (NEG) Urine Ketones (Stick) Trace mg/dL (NEG) Urine Blood Negative (NEG) Urine Nitrite Negative (NEG) Urine Bilirubin Small (NEG) Urine Urobilinogen Dipstick 1.0 mg/dL (0.2 mg/dL) Urine Leukocyte Esterase Small (NEG) Urine RBC 0 /HPF (0-2) Urine WBC 5-10 /HPF (0-4) Urine Squamous Epithelial Cells Few /LPF Urine Bacteria 0 /HPF (0-FEW) Urine Hyaline Casts Few /HPF Urine Mucus Marked /LPF Urine Opiates Screen Neg (NEG) Urine Methadone Screen Neg (NEG) Urine Barbiturates Neg (NEG) Urine Phencyclidine Screen Neg (NEG) Urine Amphetamine/Methamphetamine Neg (NEG) Urine Benzodiazepines Screen Neg (NEG) Urine Cocaine Screen Neg (NEG) Urine Cannabinoids Screen Neg (NEG) Urine Ethyl Alcohol Neg (NEG) White Blood Count 11.9 x10^3/uL (4.0-11.0) Red Blood Count 4.06 x10^6/uL (3.50-5.40) Hemoglobin 9.9 g/dL (12.0-15.5) Hematocrit 31.3 % (36.0-47.0) Mean Corpuscular Volume 77 fL (79-100) Mean Corpuscular Hemoglobin 24 pg (25-35) Mean Corpuscular Hemoglobin Concent 32 g/dL (31-37) Red Cell Distribution Width 16.1 % (11.5-14.5) Platelet Count 430 x10^3/uL (140-400) Neutrophils (%) (Auto) 59 % (31-73) Lymphocytes (%) (Auto) 31 % (24-48) Monocytes (%) (Auto) 9 % (0-9) Eosinophils (%) (Auto) 1 % (0-3) Basophils (%) (Auto) 0 % (0-3) Neutrophils # (Auto) 7.0 x10^3/uL (1.8-7.7) Lymphocytes # (Auto) 3.7 x10^3/uL (1.0-4.8) Monocytes # (Auto) 1.1 x10^3/uL (0.0-1.1) Eosinophils # (Auto) 0.1 x10^3/uL (0.0-0.7) Basophils # (Auto) 0.0 x10^3/uL (0.0-0.2) D-Dimer (Irasema) 2.39 ug/mlFEU (0.00-0.50) Sodium Level 138 mmol/L (136-145) Potassium Level 4.0 mmol/L (3.5-5.1) Chloride Level 103 mmol/L (98-107) Carbon Dioxide Level 26 mmol/L (21-32) Anion Gap 9 (6-14) Blood Urea Nitrogen 9 mg/dL (7-20) Creatinine 0.8 mg/dL (0.6-1.0) Estimated GFR (Cockcroft-Gault) 73.4 BUN/Creatinine Ratio 11 (6-20) Glucose Level 109 mg/dL (70-99) Calcium Level 8.6 mg/dL (8.5-10.1) Magnesium Level 2.2 mg/dL (1.8-2.4) Total Bilirubin 0.6 mg/dL (0.2-1.0) Aspartate Amino Transf (AST/SGOT) 25 U/L (15-37) Alanine Aminotransferase (ALT/SGPT) 44 U/L (14-59) Alkaline Phosphatase 132 U/L (46-116) Troponin I High Sensitivity 5 ng/L (4-50) 5 ng/L (4-50) CZ-Gby-X-Type Natriuretic Peptide 7 pg/mL (0-124) Total Protein 7.5 g/dL (6.4-8.2) Albumin 3.4 g/dL (3.4-5.0) Albumin/Globulin Ratio 0.8 (1.0-1.7) Lipase 68 U/L (73-393) Lactic Acid Level 0.7 mmol/L (0.4-2.0) Allergies: Coded Allergies: No Known Drug Allergies (Unverified , 02/23/20) Medications: Current Medications Medications (Trade) Dose Ordered Sig/Citlali Route PRN Reason Start Time Stop Time Status Last Admin Dose Admin Sodium Chloride 1,000 ml @ 1,000 mls/hr 1X ONCE IV 07/17/21 03:00 07/17/21 03:59 DC 07/17/21 02:52 Famotidine (Pepcid Vial) 20 mg 1X ONCE IVP 07/17/21 03:30 07/17/21 03:31 DC 07/17/21 03:30 Iohexol (Omnipaque 300 Mg/ml) 75 ml 1X ONCE IV 07/17/21 03:45 07/17/21 03:46 DC 07/17/21 03:43 Hydromorphone HCl (Dilaudid) 0.5 mg 1X ONCE IVP 07/17/21 05:15 07/17/21 05:21 DC 07/17/21 05:15 Azithromycin 500 mg/Sodium Chloride 250 ml @ 250 mls/hr 1X ONCE IV 07/17/21 05:30 07/17/21 06:29 DC 07/17/21 05:30 Imaging: Imaging: CXR IMPRESSION: Left mid lung and lung base patchy airspace opacities likely consolidative process such as pneumonia. Atelectasis could also have this appearance. CT A/P FINDINGS: Lower Chest: Lung bases are clear. Abdomen and Pelvis: Liver is unremarkable. Gallbladder is normal. Spleen is unremarkable. Adrenal glands are normal. Pancreas is unremarkable. Appendix is normal. Symmetric nephrograms. No focal renal lesion. No hydronephrosis. No hydroureter. Multiple uterine fibroids including some of which are calcified. Appendix is normal. Moderate colonic stool content is seen. There is infiltration of the colon at the hepatic flexure. Small bowel feces sign distal small bowel. No abdominal or pelvic ascites. No abdominal or pelvic lymphadenopathy. Bones: No aggressive osseous lesion is seen. Degenerative changes of the spine are seen. IMPRESSION: 1. Thickening of the hepatic flexure of the colon with associated moderate infiltration consistent with colitis, possibly infectious or inflammatory. Ischemic colitis is not excluded but less likely given distribution. Of note, colonic mass can also present in this manner and following resolution of the acute process, colonoscopy is recommended if not recently performed. Chest CT IMPRESSION: 1. Aorta is normal in caliber. 2. Linear opacities lung bases likely scarring or atelectasis. No lobar consolidation. PE: GEN: NAD HEENT: Atraumatic, PERRL LUNGS: CTAB HEART: RRR ABD: quiet BS, soft, epigastric discomfort tracking to BUQ EXTREMITY: No edema SKIN: No rashes, no jaundice NEURO/PSYCH: A & O 3 A/P: A/P: Recent COVID, fatigue - reports resolution of n/v, diarrhea, and fever Leukocytosis, microcytic anemia, elevated Alk Phos, elevated D-dimer Abnormal CT - thickening of the hepatic flexure of the colon - also noted uterine fibroids, moderate stool content, normal GB H/o dyspepsia (w/ onions), remote h/o "ulcer" (though no previous EGD), bloating since metformin CRC screen, h/o polyps - last colonoscopy <10 years FH "colitis" -- Not sure about "colitis" - diarrhea resolved, moderate stool content on CT - will plan to further evaluation w/ outpt colonoscopy along w/ EGD for epigastric pain. D/w Dr. Bravo - check RUQ US (gayathri GARCIA). Check anemia parameters, add PPI, advance diet as tolerated, observe. FRANCHESCA MIRANDA Jul 17, 2021 09:05
[2021-07-17] MEDS ORDERED: PANTOPRAZOLE IV PUSH 40 MG VIAL. IVP ONE (09:30)
[2021-07-17] MEDS ORDERED: guaiFENesin DM 200MG/20MG 10 ML SYRUP PO PRN (09:30)
[2021-07-17] MEDS ORDERED: ACETAMINOPHEN 325 MG TABLET. PO PRN (09:30)
[2021-07-17] MEDS ORDERED: ONDANSETRON PF 4 MG/2 ML VIAL. IVP PRN (09:30)
[2021-07-17] MEDS ORDERED: POLYETHYLENE GLYCOL 3350 17 GM PACKET. PO PRN (09:30)
[2021-07-17] MEDS ORDERED: DEXTROSE 50% 25 GM / 50ML DISP.SYRIN. IV PRN (09:45)
--- NOTE | 2021-07-17 10:03 | RAD ---
EXAM: ULTRASOUND ABDOMEN LIMITED CLINICAL HISTORY: Upper abdominal pain COMPARISON: None available. TECHNIQUE: Limited ultrasound examination of the right upper quadrant of the abdomen was performed. FINDINGS: The visualized pancreas grossly appears unremarkable. The liver length measures 15.8 cm. Increased ec hogenicity identified in the liver likely hepatic steatosis. The gallbladder is mildly distended. The common bile duct measures 3.6 mm in transverse dimension. The right kidney measures 12.5 x 5.5 x 5.2 cm. IMPRESSION: Mild increased echogenicity identified in the liver likely hepatic steatosis. Electronically signed by: Juancarlos Arredondo MD (07/17/2021 10:01 AM) [id number]
[2021-07-17] MEDS: LIDO:MAALOX 1:1 20 ML SINGLE DOSE. PO PRN ×2 (10:53→18:38)
[2021-07-17] MEDS: INSULIN LISPRO 300 UNITS/3 ML VIAL. SQ SCH ×2 (13:00→17:00)
--- NOTE | 2021-07-17 13:18 | PDOC ---
[facility] [facility] PROGRESS NOTE Date of Service DOS: DATE: 07/17/21 TIME: 13:15 Chief Complaint Chief Complaint Assessment/Plan Epigastric abdominal pain -possibly PUD. IV fentanyl for pain, IV PPI. Consult GI for consideration of EGD inpatient versus outpatient. If able to manage pain may be radicular outpatient. Abnormal CT -not clear if it is actually colitis. Urinary symptoms are consistent with's. Microcytic anemia -has history of ZION likely case. Iron studies ordered by GI DM2 -sliding scale. Hold metformin as she has GI upset H/o COVID 19 - in recovery Radiographic evidence of hepatic steatosis FEN - NPO PPX - PPI FULL CODE DIspo - inpatient History of Present Illness History of Present Illness 60 yo female with PMHx DM2, PUD who comes to ED 07/16/2021 complaining of progressively worsening epigastric pain that began on 1 5 and has progressively worsened. Associated sour stomach and nausea unable to take p.o. due to the pain. Loss of appetite. Try to eat soup which did not worsen the pain but does not have an appetite. She forced herself to eat. She was diagnosed COVID-19 on 07/04/2021 and recovered at home. She is fully vaccinated with the Moderna vaccine. Her respiratory symptoms had resolved on 07/14/2021 and was feeling good for a couple days prior to her GI symptoms. While she had COVID she did have diarrhea but that has resolved approximately 5 days before coming to the ED. For diabetes she notes her A1c was initially 14 and has been able to get it down to 8 takes 1000 g of Metformin twice daily. Has been on sucralfate for over 5 years as her PCP diagnosed her with ulcers. She has never had an EGD but did have a colonoscopy almost 10 years ago noted polyps. She cannot member the physician where she had this performed. EKG Sinus rhythm 82 beats per minute, no axis deviation cutting intervals, T wave inversion lead III, no ST elevations or ST depressions, Q-wave present in lead III, no S in lead I Chest radiograph with left midlung airspace disease CT chest does not confirm this. CT abdomen pelvis with hepatic flexure wall thickening of the colon. 07/17/2021 No acute events overnight. Patient seen and examined bedside in the ED. Feli ent denies any rectal bleeding or nausea vomiting. Still complains of mild epigastric and right lower quadrant pain. Was told by GI that they might consider gallbladder as an etiology for her pain. Vitals/I&O Vitals/I&O: Vital Signs Date Time Temp Pulse Resp B/P (MAP) Pulse Ox O2 Delivery O2 Flow Rate FiO2 07/17/21 10:54 74 107/61 (76) 100 Room Air 07/17/21 01:45 98.2 18 98.2 Physical Exam General: Alert, Oriented X3, Cooperative, moderate distress Abdomen: Normal bowel sounds, Soft, No hepatosplenomegaly, No masses, Other (Epigastric tenderness) Skin: No rashes, No breakdown, No significant lesion Labs Labs: Laboratory Tests Test 07/17/21 02:22 07/17/21 02:46 07/17/21 05:45 07/17/21 11:25 Urine Collection Type Unknown Urine Color Zora Urine Clarity Clear Urine pH 6.5 (<5.0-8.0) Urine Specific Bohannon >=1.030 (1.000-1.030) Urine Protein 30 mg/dL (NEG-TRACE) Urine Glucose (UA) Negative mg/dL (NEG) Urine Ketones (Stick) Trace mg/dL (NEG) Urine Blood Negative (NEG) Urine Nitrite Negative (NEG) Urine Bilirubin Small (NEG) Urine Urobilinogen Dipstick 1.0 mg/dL (0.2 mg/dL) Urine Leukocyte Esterase Small (NEG) Urine RBC 0 /HPF (0-2) Urine WBC 5-10 /HPF (0-4) Urine Squamous Epithelial Cells Few /LPF Urine Bacteria 0 /HPF (0-FEW) Urine Hyaline Casts Few /HPF Urine Mucus Marked /LPF Urine Opiates Screen Neg (NEG) Urine Methadone Screen Neg (NEG) Urine Barbiturates Neg (NEG) Urine Phencyclidine Screen Neg (NEG) Urine Amphetamine/Methamphetamine Neg (NEG) Urine Benzodiazepines Screen Neg (NEG) Urine Cocaine Screen Neg (NEG) Urine Cannabinoids Screen Neg (NEG) Urine Ethyl Alcohol Neg (NEG) White Blood Count 11.9 x10^3/uL (4.0-11.0) Red Blood Count 4.06 x10^6/uL (3.50-5.40) Hemoglobin 9.9 g/dL (12.0-15.5) Hematocrit 31.3 % (36.0-47.0) Mean Corpuscular Volume 77 fL (79-100) Mean Corpuscular Hemoglobin 24 pg (25-35) Mean Corpuscular Hemoglobin Concent 32 g/dL (31-37) Red Cell Distribution Width 16.1 % (11.5-14.5) Platelet Count 430 x10^3/uL (140-400) Neutrophils (%) (Auto) 59 % (31-73) Lymphocytes (%) (Auto) 31 % (24-48) Monocytes (%) (Auto) 9 % (0-9) Eosinophils (%) (Auto) 1 % (0-3) Basophils (%) (Auto) 0 % (0-3) Neutrophils # (Auto) 7.0 x10^3/uL (1.8-7.7) Lymphocytes # (Auto) 3.7 x10^3/uL (1.0-4.8) Monocytes # (Auto) 1.1 x10^3/uL (0.0-1.1) Eosinophils # (Auto) 0.1 x10^3/uL (0.0-0.7) Basophils # (Auto) 0.0 x10^3/uL (0.0-0.2) D-Dimer (Irasema) 2.39 ug/mlFEU (0.00-0.50) Sodium Level 138 mmol/L (136-145) Potassium Level 4.0 mmol/L (3.5-5.1) Chloride Level 103 mmol/L (98-107) Carbon Dioxide Level 26 mmol/L (21-32) Anion Gap 9 (6-14) Blood Urea Nitrogen 9 mg/dL (7-20) Creatinine 0.8 mg/dL (0.6-1.0) Estimated GFR (Cockcroft-Gault) 73.4 BUN/Creatinine Ratio 11 (6-20) Glucose Level 109 mg/dL (70-99) Calcium Level 8.6 mg/dL (8.5-10.1) Magnesium Level 2.2 mg/dL (1.8-2.4) Iron Level 14 ug/dL (50-170) Total Iron Binding Capacity 285 ug/dL (250-450) Iron Saturation 5 % (15-34) Total Bilirubin 0.6 mg/dL (0.2-1.0) Gamma Glutamyl Transpeptidase 89 U/L (5-55) Aspartate Amino Transf (AST/SGOT) 25 U/L (15-37) Alanine Aminotransferase (ALT/SGPT) 44 U/L (14-59) Alkaline Phosphatase 132 U/L (46-116) Troponin I High Sensitivity 5 ng/L (4-50) 5 ng/L (4-50) 5 ng/L (4-50) NS-Aif-B-Type Natriuretic Peptide 7 pg/mL (0-124) Total Protein 7.5 g/dL (6.4-8.2) Albumin 3.4 g/dL (3.4-5.0) Albumin/Globulin Ratio 0.8 (1.0-1.7) Lipase 68 U/L (73-393) Vitamin B12 Level 943 pg/mL (247-911) Lactic Acid Level 0.7 mmol/L (0.4-2.0) Test 07/17/21 12:43 Glucose (Fingerstick) 68 mg/dL (70-99) Assessment and Plan Assessmemt and Plan Problems Medical Problems: (1) Abdominal pain Status: Acute (2) Colitis Status: Acute (3) Pneumonia Status: Acute Comment Review of Relevant I have reviewed the following items martha (where applicable) has been applied. Medications: Current Medications Medications (Trade) Dose Ordered Sig/Citlali Route PRN Reason Start Time Stop Time Status Last Admin Dose Admin Sodium Chloride 1,000 ml @ 1,000 mls/hr 1X ONCE IV 07/17/21 03:00 07/17/21 03:59 DC 07/17/21 02:52 Famotidine (Pepcid Vial) 20 mg 1X ONCE IVP 07/17/21 03:30 07/17/21 03:31 DC 07/17/21 03:30 Iohexol (Omnipaque 300 Mg/ml) 75 ml 1X ONCE IV 07/17/21 03:45 07/17/21 03:46 DC 07/17/21 03:43 Hydromorphone HCl (Dilaudid) 0.5 mg 1X ONCE IVP 07/17/21 05:15 07/17/21 05:21 DC 07/17/21 05:15 Azithromycin 500 mg/Sodium Chloride 250 ml @ 250 mls/hr 1X ONCE IV 07/17/21 05:30 07/17/21 06:29 DC 07/17/21 05:30 Pantoprazole Sodium (PROTONIX VIAL for IV PUSH) 40 mg 1X ONCE IVP 07/17/21 09:30 07/17/21 09:39 DC 07/17/21 10:53 Multi-Ingredient Mouthwash/Gargle (Gi Cocktail) 20 ml PRN QID PRN PO epigastric pain 07/17/21 09:30 07/17/21 10:53 Justifications for Admission Other Justification ROBBY HATFIELD MD Jul 17, 2021 13:17
[2021-07-17] MEDS: PIPERACILLIN/TAZOBACTAM 3.375 GM in IV NORMAL SALINE 50ML 50 ML IV SCH ×2 (18:38→23:37)
[2021-07-17 19:40] VITALS: BP 111/67
[2021-07-17] MEDS ORDERED: METF500T16 PO (21:18)
[2021-07-17 23:05] VITALS: BP 114/66
[2021-07-17] MEDS: fentaNYL PF VIAL 100 MCG/2 ML VIAL IVP PRN (23:33)
[2021-07-18] VITALS (7 sets, daily range): BP systolic 89–117; BP diastolic 55–73
[2021-07-18] MEDS: PIPERACILLIN/TAZOBACTAM 3.375 GM in IV NORMAL SALINE 50ML 50 ML IV SCH ×3 (05:57→17:56)
[2021-07-18] MEDS: INSULIN LISPRO 300 UNITS/3 ML VIAL. SQ SCH ×3 (08:00→17:00)
[2021-07-18 08:12] LABS: HEMATOCRIT 29.9 % (36.0-47.0); HEMOGLOBIN 9.4 g/dL (12.0-15.5); RED BLOOD COUNT 3.82 x10^6/uL (3.50-5.40); RED CELL DISTRIBUTION WIDTH 15.8 % (11.5-14.5); WHITE BLOOD COUNT 6.4 x10^3/uL (4.0-11.0)
[2021-07-18 08:34] LABS: ALBUMIN 3.1 g/dL (3.4-5.0); ALBUMIN/GLOBULIN RATIO 0.8 (1.0-1.7); CALCIUM 8.9 mg/dL (8.5-10.1); CREATININE 0.8 mg/dL (0.6-1.0); GFR 73.4; POTASSIUM 4.4 mmol/L (3.5-5.1); TOTAL BILIRUBIN 0.4 mg/dL (0.2-1.0); TOTAL PROTEIN 7.1 g/dL (6.4-8.2)
[2021-07-18] MEDS: PANTOPRAZOLE 40 MG TABLET.DR. PO SCH (09:24)
--- NOTE | 2021-07-18 13:33 | PDOC ---
[employer] [facility] PROGRESS NOTE Date of Service DOS: DATE: 07/18/21 TIME: 13:15 Chief Complaint Chief Complaint Assessment/Plan Epigastric abdominal pain -possibly PUD. IV fentanyl for pain, IV PPI. Consult GI for consideration of EGD inpatient versus outpatient. If able to manage pain may be radicular outpatient. Abnormal CT -not clear if it is actually colitis. Urinary symptoms are consistent with's. Microcytic anemia -has history of ZION likely case. Iron studies ordered by GI, will give IV iron given prior PO iron intolerance DM2 -sliding scale. Hold metformin as she has GI upset H/o COVID 19 - in recovery Radiographic evidence of hepatic steatosis FEN - Clear liquid diet PPX - PPI FULL CODE DIspo - inpatient History of Present Illness History of Present Illness Ms Khan is a 60 yo female with PMHx DM2, PUD who comes to ED 07/16/2021 complaining of progressively worsening epigastric pain that began on 1 5 and has progressively worsened. Associated sour stomach and nausea unable to take p.o. due to the pain. Loss of appetite. Try to eat soup which did not worsen the pain but does not have an appetite. She forced herself to eat. She was diagnosed COVID-19 on 07/04/2021 and recovered at home. She is fully vaccinated with the Moderna vaccine. Her respiratory symptoms had resolved on 07/14/2021 and was feeling good for a couple days prior to her GI symptoms. While she had COVID she did have diarrhea but that has resolved approximately 5 days before coming to the ED. For diabetes she notes her A1c was initially 14 and has been able to get it down to 8 takes 1000 g of Metformin twice daily. Has been on sucralfate for over 5 years as her PCP diagnosed her with ulcers. She has never had an EGD but did have a colonoscopy almost 10 years ago noted polyps. She cannot member the physician where she had this performed. EKG Sinus rhythm 82 beats per minute, no axis deviation cutting intervals, T wave inversion lead III, no ST elevations or ST depressions, Q-wave present in lead III, no S in lead I Chest radiograph with left midlung airspace disease CT chest does not confirm this. CT abdomen pelvis with hepatic flexure wall thickening of the colon. 07/18: No acute events overnight. Patient denies any rectal bleeding or vomiting. Still complains of mild epigastric and right upper quadrant pain and nausea. Tolerating clear liquid diet without change in her pain. RUQ ultrasound with no sign of acute cholecystitis. WBC improved after initiating Zosyn for presumptive infectious colitis. Plan: Try a low-fat diet and if pain continues to improve can transition oral oral antibiotics for colitis and potentially discharge in the next 24 to 48 hours once pain is better controlled and can have outpatient GI follow-up for colonoscopy consideration of EGD and consider HIDA scan. Vitals/I&O Vitals/I&O: Vital Signs Date Time Temp Pulse Resp B/P (MAP) Pulse Ox O2 Delivery O2 Flow Rate FiO2 07/18/21 11:00 97.4 70 18 112/68 (83) 95 Room Air 97.4 I & O 07/17/21 07/17/21 07/18/21 15:00 23:00 07:00 Intake Total 120 ml 600 ml Balance 120 ml 600 ml Physical Exam General: Alert, Oriented X3, Cooperative, moderate distress Abdomen: Normal bowel sounds, Soft, No hepatosplenomegaly, No masses, Other (Epigastric tenderness) Skin: No rashes, No breakdown, No significant lesion Labs Labs: Laboratory Tests Test 07/17/21 14:58 07/17/21 21:04 07/18/21 07:15 07/18/21 07:25 Glucose (Fingerstick) 117 mg/dL (70-99) 120 mg/dL (70-99) 90 mg/dL (70-99) White Blood Count 6.4 x10^3/uL (4.0-11.0) Red Blood Count 3.82 x10^6/uL (3.50-5.40) Hemoglobin 9.4 g/dL (12.0-15.5) Hematocrit 29.9 % (36.0-47.0) Mean Corpuscular Volume 78 fL (79-100) Mean Corpuscular Hemoglobin 25 pg (25-35) Mean Corpuscular Hemoglobin Concent 32 g/dL (31-37) Red Cell Distribution Width 15.8 % (11.5-14.5) Platelet Count 429 x10^3/uL (140-400) Sodium Level 142 mmol/L (136-145) Potassium Level 4.4 mmol/L (3.5-5.1) Chloride Level 105 mmol/L (98-107) Carbon Dioxide Level 28 mmol/L (21-32) Anion Gap 9 (6-14) Blood Urea Nitrogen 6 mg/dL (7-20) Creatinine 0.8 mg/dL (0.6-1.0) Estimated GFR (Cockcroft-Gault) 73.4 BUN/Creatinine Ratio 8 (6-20) Glucose Level 97 mg/dL (70-99) Calcium Level 8.9 mg/dL (8.5-10.1) Total Bilirubin 0.4 mg/dL (0.2-1.0) Aspartate Amino Transf (AST/SGOT) 25 U/L (15-37) Alanine Aminotransferase (ALT/SGPT) 41 U/L (14-59) Alkaline Phosphatase 126 U/L (46-116) Total Protein 7.1 g/dL (6.4-8.2) Albumin 3.1 g/dL (3.4-5.0) Albumin/Globulin Ratio 0.8 (1.0-1.7) Test 07/18/21 11:19 Glucose (Fingerstick) 91 mg/dL (70-99) Assessment and Plan Assessmemt and Plan Problems Medical Problems: (1) Abdominal pain Status: Acute (2) Colitis Status: Acute (3) Pneumonia Status: Acute Comment Review of Relevant I have reviewed the following items martha (where applicable) has been applied. Medications: Current Medications Medications (Trade) Dose Ordered Sig/Citlali Route PRN Reason Start Time Stop Time Status Last Admin Dose Admin Pantoprazole Sodium (Protonix) 40 mg DAILYAC PO 07/18/21 07:30 07/18/21 09:24 Piperacillin Sod/ Tazobactam Sod 3.375 gm/Sodium Chloride 50 ml @ 100 mls/hr Q6HRS IV 07/17/21 18:00 07/18/21 05:57 Justifications for Admission Other Justification VANESSA LANDERS MD Jul 18, 2021 13:33
[2021-07-18] MEDS ORDERED: IRON SUCROSE COMPLEX 400 MG in IV NORMAL SALINE 250ML 250 ML IV ONE (14:30)
[2021-07-18] MEDS: fentaNYL PF VIAL 100 MCG/2 ML VIAL IVP PRN (15:05)
--- NOTE | 2021-07-18 17:56 | NUR ---
IV access lost during morning rounds, patients 1200 zosyn delayed until 1500. Call to pharmacy and advised to go ahead and give pt zosyn at 1500 and to skip the 1800 dose for this evening.
[2021-07-19] MEDS: PIPERACILLIN/TAZOBACTAM 3.375 GM in IV NORMAL SALINE 50ML 50 ML IV SCH ×3 (00:29→12:06)
[2021-07-19 03:00] VITALS: BP 110/70
[2021-07-19] MEDS: PANTOPRAZOLE 40 MG TABLET.DR. PO SCH (05:51)
[2021-07-19 07:00] VITALS: BP 102/53
[2021-07-19] MEDS: INSULIN LISPRO 300 UNITS/3 ML VIAL. SQ SCH ×2 (08:00→12:00)
[2021-07-19] MEDS ORDERED: LACTOBACILLUS RHAMNOSUS GG 1 CAPSULE. PO SCH (09:00)
[2021-07-19 11:00] VITALS: BP 112/70
--- NOTE | 2021-07-19 14:23 | PDOC ---
[employer] PROGRESS NOTE Date of Service DOS: DATE: 07/19/21 TIME: 14:21 Chief Complaint Chief Complaint Assessment/Plan Epigastric abdominal pain -possibly PUD. IV fentanyl for pain, IV PPI. Consult GI for consideration of EGD inpatient versus outpatient. If able to manage pain may be radicular outpatient. Abnormal CT -not clear if it is actually colitis. Urinary symptoms are consistent with's. Microcytic anemia -has history of ZION likely case. Iron studies ordered by GI, will give IV iron given prior PO iron intolerance DM2 -sliding scale. Hold metformin as she has GI upset H/o COVID 19 - in recovery Radiographic evidence of hepatic steatosis FEN - Clear liquid diet PPX - PPI FULL CODE DIspo - inpatient History of Present Illness History of Present Illness Ms Khan is a 60 yo female with PMHx DM2, PUD who comes to ED 07/16/2021 complaining of progressively worsening epigastric pain that began on 1 5 and has progressively worsened. Associated sour stomach and nausea unable to take p.o. due to the pain. Loss of appetite. Try to eat soup which did not worsen the pain but does not have an appetite. She forced herself to eat. She was diagnosed COVID-19 on 07/04/2021 and recovered at home. She is fully vaccinated with the Moderna vaccine. Her respiratory symptoms had resolved on 07/14/2021 and was feeling good for a couple days prior to her GI symptoms. While she had COVID she did have diarrhea but that has resolved approximately 5 days before coming to the ED. For diabetes she notes her A1c was initially 14 and has been able to get it down to 8 takes 1000 g of Metformin twice daily. Has been on sucralfate for over 5 years as her PCP diagnosed her with ulcers. She has never had an EGD but did have a colonoscopy almost 10 years ago noted polyps. She cannot member the physician where she had this performed. EKG Sinus rhythm 82 beats per minute, no axis deviation cutting intervals, T wave inversion lead III, no ST elevations or ST depressions, Q-wave present in lead III, no S in lead I Chest radiograph with left midlung airspace disease CT chest does not confirm this. CT abdomen pelvis with hepatic flexure wall thickening of the colon. 07/18: No acute events overnight. Patient denies any rectal bleeding or vomiting. Still complains of mild epigastric and right upper quadrant pain and nausea. Tolerating clear liquid diet without change in her pain. RUQ ultrasound with no sign of acute cholecystitis. WBC improved after initiating Zosyn for presumptive infectious colitis. 07/19: Overnight events. Pain improved. Tolerated IV iron well. Tolerating p.o. better. Will try p.o. antibiotics today and hopefully discharge home on 3 days p.o. antibiotics with outpatient GI follow-up. Plan: Try a low-fat diet and if pain continues to improve can transition oral oral antibiotics for colitis and potentially discharge in the next 24 to 48 hours once pain is better controlled and can have outpatient GI follow-up for colonoscopy consideration of EGD and consider HIDA scan. Vitals/I&O Vitals/I&O: Vital Signs Date Time Temp Pulse Resp B/P (MAP) Pulse Ox O2 Delivery O2 Flow Rate FiO2 07/19/21 11:00 97.8 72 14 112/70 (84) 99 Room Air 97.8 I & O 07/18/21 07/18/21 07/19/21 15:00 23:00 07:00 Intake Total 600 ml Output Total 800 ml Balance -800 ml 600 ml Physical Exam General: Alert, Oriented X3, Cooperative, moderate distress Abdomen: Normal bowel sounds, Soft, No hepatosplenomegaly, No masses, Other (Epigastric tenderness) Skin: No rashes, No breakdown, No significant lesion Labs Labs: Laboratory Tests Test 07/18/21 17:17 07/18/21 20:40 07/19/21 08:11 07/19/21 12:12 Glucose (Fingerstick) 112 mg/dL (70-99) 96 mg/dL (70-99) 94 mg/dL (70-99) 90 mg/dL (70-99) Assessment and Plan Assessmemt and Plan Problems Medical Problems: (1) Abdominal pain Status: Acute (2) Colitis Status: Acute (3) Pneumonia Status: Acute Comment Review of Relevant I have reviewed the following items martha (where applicable) has been applied. Medications: Current Medications Medications (Trade) Dose Ordered Sig/Citlali Route PRN Reason Start Time Stop Time Status Last Admin Dose Admin Iron Sucrose 400 mg/Sodium Chloride 270 ml @ 90 mls/hr 1X ONCE IV 07/18/21 14:30 07/18/21 17:29 DC 07/18/21 15:56 Justifications for Admission Other Justification VANESSA LANDERS MD Jul 19, 2021 14:22
[2021-07-19] MEDS ORDERED: AMOX1TAB11 PO (14:25)
[2021-07-19] MEDS ORDERED: PANT40TA77 PO (14:25)
[2021-07-19] MEDS ORDERED: METR-34 PO (14:25)
[2021-07-19] MEDS ORDERED: TRAM50TA PO (14:25)
[2021-07-19] MEDS ORDERED: metroNIDAZOLE 500 MG TABLET PO SCH (14:30)
[2021-07-19] MEDS ORDERED: AMOXICILLIN/K CLAV 875/125MG TABLET. PO SCH (14:30)
--- NOTE | 2021-07-19 14:33 | PDOC3 ---
Discharge Summary Visit Information Date of Admission: Jul 17, 2021 Date of Discharge: Jul 19, 2021 Admitting Diagnosis: Abdominal pain Final Diagnosis Problems Medical Problems: (1) Abdominal pain Status: Acute (2) Colitis Status: Acute (3) Pneumonia Status: Acute Brief Hospital Course Allergies Allergies Coded Allergies Type Severity Reaction Last Updated Verified No Known Drug Allergies 02/23/20 No Vital Signs Vital Signs Date Time Temp Pulse Resp B/P (MAP) Pulse Ox O2 Delivery O2 Flow Rate FiO2 07/19/21 11:00 97.8 72 14 112/70 (84) 99 Room Air 97.8 Lab Results Laboratory Tests Test 07/17/21 14:58 07/17/21 21:04 07/18/21 07:15 07/18/21 07:25 Glucose (Fingerstick) 117 mg/dL (70-99) 120 mg/dL (70-99) 90 mg/dL (70-99) White Blood Count 6.4 x10^3/uL (4.0-11.0) Red Blood Count 3.82 x10^6/uL (3.50-5.40) Hemoglobin 9.4 g/dL (12.0-15.5) Hematocrit 29.9 % (36.0-47.0) Mean Corpuscular Volume 78 fL (79-100) Mean Corpuscular Hemoglobin 25 pg (25-35) Mean Corpuscular Hemoglobin Concent 32 g/dL (31-37) Red Cell Distribution Width 15.8 % (11.5-14.5) Platelet Count 429 x10^3/uL (140-400) Sodium Level 142 mmol/L (136-145) Potassium Level 4.4 mmol/L (3.5-5.1) Chloride Level 105 mmol/L (98-107) Carbon Dioxide Level 28 mmol/L (21-32) Anion Gap 9 (6-14) Blood Urea Nitrogen 6 mg/dL (7-20) Creatinine 0.8 mg/dL (0.6-1.0) Estimated GFR (Cockcroft-Gault) 73.4 BUN/Creatinine Ratio 8 (6-20) Glucose Level 97 mg/dL (70-99) Calcium Level 8.9 mg/dL (8.5-10.1) Total Bilirubin 0.4 mg/dL (0.2-1.0) Aspartate Amino Transf (AST/SGOT) 25 U/L (15-37) Alanine Aminotransferase (ALT/SGPT) 41 U/L (14-59) Alkaline Phosphatase 126 U/L (46-116) Total Protein 7.1 g/dL (6.4-8.2) Albumin 3.1 g/dL (3.4-5.0) Albumin/Globulin Ratio 0.8 (1.0-1.7) Test 07/18/21 11:19 07/18/21 17:17 07/18/21 20:40 07/19/21 08:11 Glucose (Fingerstick) 91 mg/dL (70-99) 112 mg/dL (70-99) 96 mg/dL (70-99) 94 mg/dL (70-99) Test 07/19/21 12:12 Glucose (Fingerstick) 90 mg/dL (70-99) Laboratory Tests Test 07/18/21 17:17 07/18/21 20:40 07/19/21 08:11 07/19/21 12:12 Glucose (Fingerstick) 112 mg/dL (70-99) 96 mg/dL (70-99) 94 mg/dL (70-99) 90 mg/dL (70-99) Brief Hospital Course Ms Khan is a 60 yo female with PMHx DM2, PUD who comes to ED 07/16/2021 complaining of progressively worsening epigastric pain that began on 1 5 and has progressively worsened. Associated sour stomach and nausea unable to take p.o. due to the pain. Loss of appetite. Try to eat soup which did not worsen the pain but does not have an appetite. She forced herself to eat. She was d iagnosed COVID-19 on 07/04/2021 and recovered at home. She is fully vaccinated with the Moderna vaccine. Her respiratory symptoms had resolved on 07/14/2021 and was feeling good for a couple days prior to her GI symptoms. While she had COVID she did have diarrhea but that has resolved approximately 5 days before coming to the ED. For diabetes she notes her A1c was initially 14 and has been able to get it down to 8 takes 1000 g of Metformin twice daily. Has been on sucralfate for over 5 years as her PCP diagnosed her with ulcers. She has never had an EGD but did have a colonoscopy almost 10 years ago noted polyps. She cannot member the physician where she had this performed. EKG Sinus rhythm 82 beats per minute, no axis deviation cutting intervals, T wave inversion lead III, no ST elevations or ST depressions, Q-wave present in lead III, no S in lead I Chest radiograph with left midlung airspace disease CT chest does not confirm this. CT abdomen pelvis with hepatic flexure wall thickening of the colon. 07/18: No acute events overnight. Patient denies any rectal bleeding or vomiting. Still complains of mild epigastric and right upper quadrant pain and nausea. Tolerating clear liquid diet without change in her pain. RUQ ultrasound with no sign of acute cholecystitis. WBC improved after initiating Zosyn for presumptive infectious colitis. 07/19: Overnight events. Pain improved. Tolerated IV iron well. Tolerating p.o. better. Will take p.o. antibiotics today and discharge home on 3 days p.o. antibiotics with outpatient GI follow-up. Plan: Low-fat diet Transition oral oral antibiotics for colitis Oral iron at home Outpatient GI follow-up for colonoscopy consideration of EGD and consider HIDA scan. Greater than 30 minutes spent on discharge Discharge Information Condition at Discharge: Improved Follow Up: Weeks (1) Disposition/Orders: D/C to Home Scheduled Amoxicillin/Potassium Clav (Amox Tr-K Clv 875-125 Mg Tab) 1 Each Tablet, 1 TAB PO BID for Colitis for 3 Days, #6 Prescribed by: VANESSA LANDERS MD on 07/19/21 1425 Metformin Hcl (Metformin Hcl) 500 Mg Tablet, 2 TAB PO BID for dm, (Reported) Entered as Reported by: ESTHER BAEZ on 07/17/212117 Last Action: New Order on 07/17/212117 by ESTHER BAEZ Metronidazole (Metronidazole) 500 Mg Tablet, 500 MG PO Q12HR for Colitis for 3 Days, #6 Prescribed by: VANESSA LANDERS MD on 07/19/21 1425 Pantoprazole Sodium (Pantoprazole Sodium ) 40 Mg Tablet.dr, 40 MG PO DAILYAC for GERD for 30 Days, #30 Prescribed by: VANESSA LANDERS MD on 07/19/21 1425 Scheduled PRN Tramadol Hcl (Tramadol Hcl) 50 Mg Tablet, 50 MG PO PRN Q6HRS PRN for PAIN for 3 Days, #12 Prescribed by: VANESSA LANDERS MD on 07/19/21 1426 Justicifation of Admission Dx: Justifications for Admission: Justification of Admission Dx: N/A VANESSA LANDERS MD Jul 19, 2021 14:33
--- NOTE | 2021-07-19 16:30 | NUR ---
pt discharged home with self care. pt transported off unit with all her belongings via wheelchair to main entrance. no other needs.
== END 2021-07-19 16:30 | disposition home or self-care (01) | DRG 391 ==
LOC: ER 20:49 → ED HOLD 07-17 06:06 → 4 NORTH 07-17 18:17
PROVIDERS: ADMIT Internal Medicine; ATTEND Internal Medicine
DX: A09 Infectious gastroenteritis and colitis, unspecified (principal); J18.9 Pneumonia, unspecified organism; D50.9 Iron deficiency anemia, unspecified; E11.9 Type 2 diabetes mellitus without complications; G43.909 Migraine, unspecified, not intractable, without status migrainosus; K76.0 Fatty (change of) liver, not elsewhere classified; Z83.3 Family history of diabetes mellitus; Z86.16 Personal history of COVID-19; Z87.11 Personal history of peptic ulcer disease; Z20.822 Contact with and (suspected) exposure to COVID-19
CPT/HCPCS: 36415; 71045; 71250; 74177; 76705; 80053; 80307; 81001; 82607; 82962; 82977; 83540; 83550; 83605; 83690; 83735; 83880; 84484; 85025; 85027; 85379; 87086; 93005; 96361; 96374; C9113; J0456; J1170; J1756; J1815; J2543; J3010; J3490; J7030; J7050; Q9967; 99285-25; G0378